=== PATIENT | female | born 1940 | race Two or more races ===

== ENCOUNTER → 2017-09-02 | Outpatient (CLI) | payer MEDICARE, BC, OTHER | END | disposition home or self-care (01) | LOC: HKI 10:56 | DX: M17.0 Bilateral primary osteoarthritis of knee (principal); E11.8 Type 2 diabetes mellitus with unspecified complications; K74.60 Unspecified cirrhosis of liver; M06.9 Rheumatoid arthritis, unspecified; I10 Essential (primary) hypertension | CPT/HCPCS: G0463 ==

== ENCOUNTER → 2017-09-14 | Outpatient (CLI) | payer MEDICARE, BC | END | disposition home or self-care (01) | LOC: HKI 11:18 | DX: M17.0 Bilateral primary osteoarthritis of knee (principal) | CPT/HCPCS: 20610 ==

== ENCOUNTER → 2017-09-23 | Outpatient (CLI) | payer MEDICARE, BC | END | disposition home or self-care (01) | LOC: HKI 11:04 | DX: M06.9 Rheumatoid arthritis, unspecified (principal); E11.8 Type 2 diabetes mellitus with unspecified complications; K76.0 Fatty (change of) liver, not elsewhere classified; K74.60 Unspecified cirrhosis of liver | CPT/HCPCS: 20610 ==